=== PATIENT | male | born 1995 ===

== ENCOUNTER 2023-08-19 15:12 | Outpatient (CLI) | payer OTHER, SELFPAY | END 2023-08-19 15:13 | disposition home or self-care (01) | LOC: AMB 08-21 02:02 | PROVIDERS: Visit Provider Emergency Medicine | DX: R44.0 Auditory hallucinations (principal) | CPT/HCPCS: A0425; A0429 ==

== ENCOUNTER 2023-08-19 15:50 | Emergency (ER) | payer OTHER, SELFPAY ==
[2023-08-19 16:01] VITALS: BP 131/92; PULSE 75; RESP 18; TEMP 36.7; O2SAT 97; BMI 32.0
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
[2023-08-19] MEDS: OLANZapine 5 MG/ML inj 10 MG IM (17:21)
[2023-08-19 17:25] LABS: Amphetamine Screen Urine Negative (Negative); Barbiturate Screen Urine Negative (Negative); Benzodiazepines Screen Urine Negative (Negative); Cannabinoid Screen Urine POSITIVE (Negative); Cocaine Screen Urine Negative (Negative); Methadone Screen Urine Negative (Negative); Methamphetamines Screen Urine Negative (Negative); Opiate Screen Urine Negative (Negative); Oxycodone Screen Urine Negative (Negative); Phencyclidine Screen Urine Negative (Negative); Tricyclic Antidepressant Urine Negative (Negative)
--- NOTE | 2023-08-19 17:50 | ED.NURSE ---
Pt is currently resting bed, is calm and cooperative at this time.
[2023-08-19 19:02] LABS: Basophils Absolute Auto 0.03 K/uL (0.00-0.30); Basophils Percent Auto 0.4 % (0.0-3.0); Eosinophils Absolute Auto 0.38 K/uL (0.00-0.50); Hematocrit 44.3 % (37.0-53.0); Immature Granulocytes Abs Auto 0.02 K/uL (0.00-0.30); Immature Granulocytes Pct Auto 0.3 %; Lymphocytes Absolute Auto 1.54 K/uL (0.90-2.90); Lymphocytes Percent Auto 20.1 % (20-44); Mean Corpuscular HGB Conc 34 gm/dL (32-36); Mean Corpuscular Hemoglobin 30 pg (26-34); Mean Corpuscular Volume 90 fL (80-100); Neutrophils Absolute Auto 5.15 K/uL (1.7-7.0); Neutrophils Percent Auto 67.2 % (42.0-72.0); Platelet Count* 227 K/uL (140-440); RDW Coefficient of Variation % 13.9 % (11.5-15.5); Red Blood Count 4.94 m/uL (4.30-5.90); White Blood Count* 7.66 K/uL (4.50-11.00)
--- NOTE | 2023-08-19 19:02 | ED.NURSE ---
pt is calm and cooperative at this time, pt is resting in bed.
[2023-08-19 19:15] LABS: Slide Review Reflex No
[2023-08-19 19:18] LABS: Albumin* 4.9 g/dL (3.3-5.0); Chloride* 103 mmol/L (96-114); Sodium* 136 mmol/L (135-149)
[2023-08-19 19:19] LABS: Potassium* 3.5 mmol/L (3.6-5.1)
[2023-08-19 19:21] LABS: Alanine Aminotransferase* 58 U/L (4-50); Alkaline Phosphatase* 52 U/L (40-150); Anion Gap 10 mEq/L (7-15); Aspartate Amino Transferase* 75 U/L (12-35); Bilirubin Total* 0.8 mg/dL (0.1-1.5); Blood Urea Nitrogen* 17 mg/dL (5-24); Calcium* 9.3 mg/dL (8.4-10.6); Carbon Dioxide* 23 mmol/L (20-32); Creatinine* 0.6 mg/dL (0.5-1.5); Est. Creatinine Clearance* 187.57; Estimated Glomerular Filt Rate 134 ml/min; Glucose* 111 mg/dL (60-115); Total Protein* 7.5 g/dL (6.0-8.3)
[2023-08-19 19:22] LABS: Acetaminophen* < 10.0 ug/mL (10.0-30.0); Ethanol* < 0.01 % (0.01-0.03); Salicylate* < 1.0 mg/dL (1.0-10)
--- NOTE | 2023-08-19 19:45 | ED.NURSE ---
Pt up to use the bathroom, is back in bed resting. Calm and cooperative at this time. [place] and fluids provided.
--- NOTE | 2023-08-19 19:51 | ED.NURSE ---
Dr. Zamudio was paged d/t pt ramping up and getting anxious, pacing back and forth. Pt was appearing to calm down after a while. Pt is currently calm and cooperative at this time.
[2023-08-19 21:15] VITALS: BP 117/79; PULSE 63; RESP 14; O2SAT 98
[2023-08-20 02:42] VITALS: BP 123/90; PULSE 60; RESP 16; TEMP 36.5; O2SAT 100
[2023-08-20 03:13] LABS: SARS PCR* Negative SARS-CoV-2 (Negative)
[2023-08-20 08:01] VITALS: BP 124/76; PULSE 60; RESP 16; O2SAT 99
[2023-08-20 11:10] VITALS: BP 132/82; PULSE 62; RESP 20; O2SAT 100
--- NOTE | 2023-08-20 11:58 | PC.SOCIAL ---
Social work: Attempted to complete mental health assessment. Patient was very short and guarded with answers and when asked for additional information or asked follow up questions, would respond with, I am not sharing that. When he offered he has a pet he cares for and asked what the pet is, stated we are in the information era, you know. Can't share that information. He quickly answered no to most all assessment questions and stated he wanted to do whatever he needs to do to get out of this hospital. He stated I have never been at a hospital for this long. He shared that he will walk home to [place], [place], which is over 40 miles from this hospital. When asked about auditory or visual hallucinations, pt responded no, only that one episode but then refused to elaborate on that episode. Pt appears to be nervous and guarded and wants to be discharged from the hospital to walk home. He is uncooperative with mental jayshree assessment. Pt is currently on a hold and has ordered in-pt mental health placement.
[2023-08-20 13:00] VITALS: BP 120/64; PULSE 64; RESP 18; O2SAT 100
[2023-08-20 14:00] VITALS: BP 127/96; PULSE 64; RESP 18; TEMP 36.4; O2SAT 100
== END 2023-08-20 14:40 ==
PROVIDERS: Emergency Provider Emergency Medicine
DX: F23 Brief psychotic disorder (principal); F22 Delusional disorders
CPT/HCPCS: 36415; 80053; 80143; 80179; 80306; 82077; 84443; 85025; 87635; 93005; 96372; 99284

== ENCOUNTER 2023-08-20 14:29 | Outpatient (CLI) | payer OTHER, SELFPAY | END 2023-08-20 14:30 | disposition home or self-care (01) | LOC: AMB 08-21 03:14 | PROVIDERS: Visit Provider Family Medicine | DX: F22 Delusional disorders (principal) | CPT/HCPCS: A0425; A0428 ==